=== PATIENT | female | born 1995 | race Hispanic/Latino ===

== ENCOUNTER 2018-06-03 18:37 | Emergency (ER) | payer OTHER | END 2018-06-03 19:38 | disposition home or self-care (01) | LOC: EDH 18:37 | DX: S69.82XA Other specified injuries of left wrist, hand and finger(s), initial encounter (principal); K21.9 Gastro-esophageal reflux disease without esophagitis; V49.49XA Driver injured in collision with other motor vehicles in traffic accident, initial encounter; Y93.89 Activity, other specified; Y92.89 Other specified places as the place of occurrence of the external cause; Y99.8 Other external cause status | CPT/HCPCS: 29125; 73110 ==

== ENCOUNTER 2019-09-24 17:34 | Observation (INO) | payer MEDICAID ==
[~2019-09-24] VITALS: Ht 162.6 cm; Wt 96.2 kg
[2019-09-24 19:14] LABS: BASOPHILS % (AUTO) 0.2 % (0.0-5.0); EOSINOPHILS % (AUTO) 0.4 % (0.0-8.0); HEMATOCRIT 37.4 % (36-48); MEAN CORPUSCULAR HEMOGLOBIN 30.2 pg (27.0-33.0); MEAN CORPUSCULAR HGB CONC 33.7 g/dL (32.0-36.0); MEAN CORPUSCULAR VOLUME 89.7 fL (79-99); MONOCYTES % (AUTO) 8.3 % (3.0-13.0); NEUTROPHILS % (AUTO) 80.2 % (40.0-77.0); NUCLEATED RED BLOOD CELLS 0.2 % (0.0-0.19); PLATELET COUNT (AUTO) 252 K/uL (130-400); RED BLOOD CELL COUNT(AUTO) 4.17 MIL/uL (4.00-5.50); RED CELL DISTRIBUTION WIDTH 13.6 % (11.0-15.5); WHITE BLOOD COUNT (AUTO) 10.1 K/uL (4.8-10.8)
[2019-09-24] MEDS ORDERED: LACTATED RINGERS 1000ML 1,000 ML IV ONE ×2 (19:16→20:32)
[2019-09-24 19:17] LABS: APPEARANCE,URINE Clear (CLEAR); BILIRUBIN,URINE Negative (NEGATIVE); COLOR,URINE Yellow (YELLOW); GLUCOSE, URINE (UA) Negative (NEGATIVE); KETONES,URINE Negative (NEGATIVE); LEUKOCYTE ESTERASE ,URINE Trace (NEGATIVE); NITRATE,URINE Negative (NEGATIVE); OCCULT BLOOD,URINE Negative (NEGATIVE); PROTEIN,URINE Negative (NEGATIVE); UROBILINOGEN,URINE 0.2 mg/dL (0.2-1.0)
[2019-09-24 19:18] LABS: CREATININE 0.5 mg/dL (0.5-1.5); POTASSIUM 3.4 mmol/L (3.5-5.1)
[2019-09-24 19:30] LABS: ALBUMIN 2.6 g/dL (3.5-5.0); BILIRUBIN,TOTAL 0.2 mg/dL (0.2-1.0); THYROID STIMULATING HORMONE 0.57 uIU/mL (0.36-3.74); TOTAL PROTEIN, SERUM 7.1 g/dL (6.0-8.3)
[2019-09-24 19:36] LABS: BACTERIA,URINE Moderate /HPF (None Seen); MUCUS,URINE None Seen LPF (None Seen); RBC,URINE 0-1 /HPF (0-1)
[2019-09-24] MEDS: ACETAMINOPHEN EXTRA STRENGTH 500 MG TABLET PO PRN ×2 (20:55→20:58)
[2019-09-24] MEDS ORDERED: MAGNESIUM SULFATE 1,000 ML IV PRN (21:12)
[2019-09-24] MEDS ORDERED: MAGNESIUM 4GM PREMIX 100ML 100 ML IV PRN (21:15)
[2019-09-24] MEDS ORDERED: AMPICILLIN 2GM+NS 100ML 100 ML IV ONE (21:20)
[2019-09-24] MEDS ORDERED: DEXAMETHASONE SOD PHOSPHATE 4 MG/ML 1ML VIAL ONE (21:21)
[2019-09-24] MEDS ORDERED: MAGNESIUM 4GM PREMIX 100ML 100 ML IV SCH (22:00)
[2019-09-24] MEDS: AMPICILLIN 2GM+NS 100ML 100 ML IV SCH (22:11)
[2019-09-25] MEDS: DEXAMETHASONE SOD PHOSPHATE 4 MG/ML 1ML VIAL IM SCH ×3 (05:09→15:01)
[2019-09-25] MEDS ORDERED: AZITHROMYCIN 250 MG TABLET PO SCH (09:00)
[2019-09-25] MEDS ORDERED: PRENATAL VITAMIN RX TABLET PO SCH (09:00)
[2019-09-25] MEDS: AMPICILLIN 2GM+NS 100ML 100 ML IV SCH (09:19)
[2019-09-26 09:13] LABS: HEPATITIS Bs ANTIGEN SCREEN P Negative (Negative)
== END 2019-09-25 15:33 | disposition home or self-care (01) ==
LOC: EDH 17:34 → LDH 17:35
PROVIDERS: ADMIT Obstetrics & Gynecology; ATTEND Obstetrics & Gynecology
DX: O26.893 Other specified pregnancy related conditions, third trimester (principal); R42 Dizziness and giddiness; R51 Headache; R11.0 Nausea; Z20.828 Contact with and (suspected) exposure to other viral communicable diseases; Z3A.31 31 weeks gestation of pregnancy
CPT/HCPCS: 36415; 76805; 76819; 80053; 81001; 84443; 85025; 86592; 87088; 87340; 87426; 87804 ×2; 96361; 96365; 96366 ×2; 96368; 96372 ×2; 99285; A4314; G0378 ×9; J0290 ×3; J1100 ×4; J3475 ×3; J7120 ×2; U0003; 96360